=== PATIENT | male | born 1955 | race Caucasian/White ===

== ENCOUNTER 2018-05-23 13:26 | Emergency (ER) ==
[2018-05-23 13:31] VITALS: BP 159/90; TEMP 97.6; BMI 34.7
--- NOTE | 2018-05-23 14:52 | ED.PDOC ---
General ED Provider: Dr. JUHI GRANT Chief Complaint: Rash Stated Complaint: facial rash Time Seen by Physician: 13:30 (seen with nurse at all times ) Mode of Arrival: Walk-In Information Source: Patient Exam Limitations: No limitations Nursing and Triage Documentation Reviewed and Agree: Yes Does patient meet sepsis criteria?: No System Inflammatory Response Syndrome: Not Applicable Sepsis Protocol: For patient's 13 years and over: Temp is 96.8 and below OR 101 and greater Pulse >90 BPM Resp >20/minute Acutely Altered Mental Status Are patient's symptoms suggestive of a new infection, such as: -Pneumonia -Skin, Soft Tissue -Endocarditis -UTI -Bone, Joint Infection -Implantable Device -Acute Abdominal Infection -Wound Infection -Meningitis -Blood Stream Catheter Infection -Unknown Skin Complaint Exam - Laceration/Head/Facial Complaint/Exam Location of Injury: Face Onset/Duration: today Symptoms Are: Still present Initial Severity: Mild Current Severity: Mild Aggravating: None Alleviating: None Associated Signs and Symptoms: Denies: Fever, Chills, Erythema, Numbness, Tingling Differential Diagnoses: Other (facial rash) Review of Systems - Review Of Systems Constitutional: Reports: No symptoms Eyes: Reports: No symptoms Ears, Nose, Mouth, Throat: Reports: No symptoms Respiratory: Reports: No symptoms Cardiac: Reports: No symptoms GI: Reports: No symptoms : Reports: No symptoms Musculoskeletal: Reports: No symptoms Skin: Reports: Rash (see photo) Neurological: Reports: No symptoms Endocrine: Reports: No symptoms Hematologic/Lymphatic: Reports: No symptoms All Other Systems: Reviewed and Negative Past Medical History - Past Medical History Previously Healthy: Yes Endocrine: Reports: None Cardiovascular: Reports: None Respiratory: Reports: None Hematological: Reports: None Gastrointestinal: Reports: None Genitourinary: Reports: None Neuro/Psych: Reports: None Musculoskeletal: Reports: None Cancer: Reports: None - Surgical History General Surgical History: Reports: None - Family History Family History: Reports: None - Social History Smoking Status: Never smoker Hx Substance Use: No Alcohol Screening: None Physical Exam - Physical Exam Appearance: Well-appearing, No pain distress, Well-nourished Eyes: CARLITOS, EOMI, Conjunctiva clear ENT: Ears normal, Nose normal, Oropharynx normal Respiratory: Airway patent, Breath sounds clear, Breath sounds equal, Respirations nonlabored Cardiovascular: RRR, Pulses normal, No rub, No murmur GI/: Soft, Nontender, No masses, Bowel sounds normal, No Organomegaly Musculoskeletal: Normal strength, ROM intact, No edema, No calf tenderness Skin: Warm, Dry (see photo) Neurological: Sensation intact, Motor intact, Reflexes intact, Cranial nerves intact, Alert, Oriented Psychiatric: Affect appropriate, Mood appropriate Critical Care Note - Critical Care Note Total Time (mins): 0 Course - Course Hematology/Chemistry: 05/23/18 13:55 05/23/18 13:55 Orders, Labs, Meds: Lab Review 05/23/18 05/23/18 05/23/18 13:55 13:55 13:55 WBC 7.41 RBC 4.96 Hgb 16.1 Hct 46.9 MCV 94.6 H MCH 32.5 H MCHC 34.3 RDW Coeff of Erendira 12.5 Plt Count 211 Immature Gran % (Auto) 0.3 Neut % (Auto) 56.7 Lymph % (Auto) 32.1 Moffat % (Auto) 5.4 Eos % (Auto) 5.0 Baso % (Auto) 0.5 Immature Gran # (Auto) 0.0 Neut # (Auto) 4.2 Lymph # (Auto) 2.4 Moffat # (Auto) 0.4 Eos # (Auto) 0.4 Baso # (Auto) 0.0 Sodium 136.6 Potassium 4.31 Chloride 101.7 Carbon Dioxide 27.6 Anion Gap 11.61 BUN 16.9 Creatinine 1.18 H Estimated GFR (MDRD) 63.00 BUN/Creatinine Ratio 14.32 Glucose 125.0 H Lactic Acid Calcium 9.50 Total Bilirubin 0.83 AST 34.1 ALT 36.3 Alkaline Phosphatase 87.2 Total Protein 8.32 H Albumin 4.60 Globulin 3.72 Albumin/Globulin Ratio 1.23 Procalcitonin < 0.05 05/23/18 13:55 WBC RBC Hgb Hct MCV MCH MCHC RDW Coeff of Erendira Plt Count Immature Gran % (Auto) Neut % (Auto) Lymph % (Auto) Moffat % (Auto) Eos % (Auto) Baso % (Auto) Immature Gran # (Auto) Neut # (Auto) Lymph # (Auto) Moffat # (Auto) Eos # (Auto) Baso # (Auto) Sodium Potassium Chloride Carbon Dioxide Anion Gap BUN Creatinine Estimated GFR (MDRD) BUN/Creatinine Ratio Glucose Lactic Acid 1.36 Calcium Total Bilirubin AST ALT Alkaline Phosphatase Total Protein Albumin Globulin Albumin/Globulin Ratio Procalcitonin Orders Category Date Time Status BLOOD CULTURE (ED ONLY) Stat LAB 05/23/18 13:55 Received CBC W/ AUTO DIFF Stat LAB 05/23/18 13:55 Completed COMPREHENSIVE METABOLIC PANEL Stat LAB 05/23/18 13:55 Completed LACTIC ACID Stat LAB 05/23/18 13:55 Completed PROCALCITONIN Stat LAB 05/23/18 13:55 Completed Vital Signs: Temp Pulse Resp BP Pulse Ox 05/23/18 13:27 97.6 F 71 18 159/90 H 98 Departure - Departure Time of Disposition: 14:51 Disposition: HOME SELF-CARE Discharge Problem: Acute maculopapular rash Instructions: Acute Rash (ED) Condition: Good Pt referred to PMD for follow-up: Yes IPMP verified?: No Allergies/Adverse Reactions: Allergies No Known Allergies Allergy (Verified 05/23/18 13:31) Home Medications: Ambulatory Orders Prednisone 10 mg PO DAILYWM #7 tablet 05/23/18 Disposition Discussed With: Patient
== END 2018-05-23 15:01 | disposition home or self-care (01) ==
LOC: ED 13:26
DX: R21 Rash and other nonspecific skin eruption (principal); R74.8 Abnormal levels of other serum enzymes
CPT/HCPCS: 36415; 80053; 83605; 84145; 85025; 87040; 99282